=== PATIENT | male | born 1975 | race Caucasian/White ===

== ENCOUNTER 2017-07-24 21:06 | Emergency (ER) | payer SELFPAY ==
[2017-07-24] MEDS ORDERED: TORADOL IM ONE (21:28)
[2017-07-24 21:35] LABS: Basophils % (Auto) 0.1 % (0.0-1.8); Hemoglobin 15.2 gm/dl (11.8-15.2); Mean Corpuscular HGB Conc 35 % (32-34); Mean Corpuscular Hemoglobin 31 pg (28-32); Mean Corpuscular Volume 89 fl (84-94); Platelet Count 165 K/mm3 (140-440); Red Blood Count 4.83 M/mm3 (3.65-5.03); Red Cell Distribution Width 13.5 % (13.2-15.2); White Blood Count 9.8 K/mm3 (4.5-11.0)
[2017-07-24 21:56] LABS: Albumin 4.3 g/dL (3.9-5); Albumin/Globulin Ratio 1.4 %; Bilirubin,Total 0.6 mg/dL (0.1-1.2); Chloride 95.6 mmol/L (98-107); Potassium 3.7 mmol/L (3.6-5.0); Total Protein 7.3 g/dL (6.3-8.2)
[2017-07-24] MEDS ORDERED: NACL 0.9% 1000 ML 1,000 ML IV ONE (22:28)
--- NOTE | 2017-07-24 22:42 | Emergency Department Report ---
ED Abdominal Pain HPI - General Chief Complaint: Abdominal Pain Stated Complaint: ABD PX/VOMITING Time Seen by Provider: 07/24/17 22:07 Source: patient Mode of arrival: Ambulatory Limitations: Language Barrier - History of Present Illness Initial Comments: 42-year-old male with a Past surgical history patient's last complaint left flank pain. Pain 1 day, constant, no aggravating or alleviating factors.pain is rated 10/10 in intensity and described as squeezing in nature. Low-grade temperature noted upon arrival. Has associated nausea vomiting. No complains of diarrhea, dysuria, or hematuria, patient has not urinated much today. Patient has had elevated blood pressure over the last 3-4 months but no meds or official diagnosis of hypertension. Severity scale (0 -10): 10 - Related Data Previous Rx's Medication Instructions Recorded Last Taken Type Ibuprofen [Motrin] 800 mg PO Q8HR PRN #30 tablet 07/25/17 Unknown Rx Ondansetron [Zofran Odt] 4 mg PO Q8HR PRN #20 tab.rapdis 07/25/17 Unknown Rx Tamsulosin [Flomax] 0.4 mg PO QDAY #7 cap 07/25/17 Unknown Rx oxyCODONE /ACETAMINOPHEN [Percocet 1 tab PO Q4HR PRN #20 tab 07/25/17 Unknown Rx 5/325] Allergies Allergy/AdvReac Type Severity Reaction Status Date / Time No Known Allergies Allergy Unverified 07/24/17 21:13 ED Review of Systems ROS: Stated complaint: ABD PX/VOMITING Other details as noted in HPI Comment: All other systems reviewed and negative Other: Constitutional: As per HPI Eyes: No eye pain visual changes or discharge ENT: No ear pain or throat pain Neck: Denies pain Respiratory: Denies cough wheezing shortness of breath Cardiovascular: Denies chest pain, palpitations, syncope GI: As per HPI : As in HPI Musculoskeletal: Left flank pain Skin: Denies rash, lesions, erythema Neurologic: Denies headache, numbness, weakness Psychiatric: Denies suicidal ideation, hallucinations ED Past Medical Hx - Past Medical History Previous Medical History?: No - Surgical History Past Surgical History?: No - Social History Smoking Status: Never Smoker Substance Use Type: Alcohol - Medications Home Medications: Home Medications Medication Instructions Recorded Confirmed Last Taken Type Ibuprofen [Motrin] 800 mg PO Q8HR PRN #30 tablet 07/25/17 Unknown Rx Ondansetron [Zofran Odt] 4 mg PO Q8HR PRN #20 tab.rapdis 07/25/17 Unknown Rx Tamsulosin [Flomax] 0.4 mg PO QDAY #7 cap 07/25/17 Unknown Rx oxyCODONE /ACETAMINOPHEN [Percocet 1 tab PO Q4HR PRN #20 tab 07/25/17 Unknown Rx 5/325] ED Physical Exam - General Limitations: Language Barrier - Other Other exam information: General: No limitations, patient is alert in no acute distress Head exam: Atraumatic, normocephalic Eyes exam: Normal appearance ENT: Moist mucous membrane, normal oropharynx Neck exam: Normal inspection, full range of motion, no meningismus nontender Respiratory exam: Clear to auscultation bilateral, no wheezes, rales, crackles Cardiovascular: Normal rate and rhythm, normal heart sounds Abdomen: Soft, nondistended, mild left upper flank tendon, with normal bowel sounds, no rebound, or guarding Extremity: Full range of motion normal inspection no deformity Back: Normal Inspection, full range of motion, no tenderness Neurologic: Alert, oriented x3, cranial nerves intact, no motor or sensory deficit Psychiatric: normal affect, normal mood Skin: Warm, dry, intact ED Course Vital Signs 07/24/17 07/24/17 07/24/17 21:10 21:36 22:05 Temperature 100.5 F H 98.4 F Pulse Rate 89 90 Respiratory 20 18 16 Rate Blood Pressure 175/106 Blood Pressure 147/92 [Left] O2 Sat by Pulse 99 97 Oximetry 07/24/17 07/24/17 07/24/17 22:15 22:30 23:21 Temperature Pulse Rate Respiratory Rate Blood Pressure 157/92 154/93 Blood Pressure [Left] O2 Sat by Pulse 97 97 99 Oximetry - Reevaluation(s) Reevaluation #1: 07/24/17 22:42 Patient received IM Toradol prior to my evaluation with improvement in pain ED Medical Decision Making - Lab Data Result diagrams: 07/24/17 21:23 07/24/17 21:23 Lab Results 07/24/17 07/24/17 07/24/17 Range/Units 21:23 21:23 22:30 WBC 9.8 (4.5-11.0) K/mm3 RBC 4.83 (3.65-5.03) M/mm3 Hgb 15.2 (11.8-15.2) gm/dl Hct 43.0 (35.5-45.6) % MCV 89 (84-94) fl MCH 31 (28-32) pg MCHC 35 H (32-34) % RDW 13.5 (13.2-15.2) % Plt Count 165 (140-440) K/mm3 Lymph % (Auto) 5.4 L (13.4-35.0) % [place] % (Auto) 5.5 (0.0-7.3) % Eos % (Auto) 0.0 (0.0-4.3) % Baso % (Auto) 0.1 (0.0-1.8) % Lymph # 0.5 L (1.2-5.4) K/mm3 [place] # 0.5 (0.0-0.8) K/mm3 Eos # 0.0 (0.0-0.4) K/mm3 Baso # 0.0 (0.0-0.1) K/mm3 Seg Neutrophils % 89.0 H (40.0-70.0) % Seg Neutrophils # 8.7 H (1.8-7.7) K/mm3 Potassium 3.7 (3.6-5.0) mmol/L Chloride 95.6 L (98-107) mmol/L Carbon Dioxide 24 (22-30) mmol/L Anion Gap 19 mmol/L BUN 17 (9-20) mg/dL Creatinine 1.5 (0.8-1.5) mg/dL Estimated GFR 51 ml/min BUN/Creatinine Ratio 11 % Glucose 151 H (75-100) mg/dL Calcium 9.0 (8.4-10.2) mg/dL Total Bilirubin 0.60 (0.1-1.2) mg/dL AST 20 (5-40) units/L ALT 18 (7-56) units/L Alkaline Phosphatase 93 (35-129) units/L Total Protein 7.3 (6.3-8.2) g/dL Albumin 4.3 (3.9-5) g/dL Albumin/Globulin Ratio 1.4 % Lipase 14 (13-60) units/L Urine Color Yellow (Yellow) Urine Turbidity Clear (Clear) Urine pH 5.0 (5.0-7.0) Ur Specific [place] 1.026 (1.003-1.030) Urine Protein 30 mg/dl (Negative) mg/dL Urine Glucose (UA) Neg (Negative) mg/dL Urine Ketones Tr (Negative) mg/dL Urine Blood Mod (Negative) Urine Nitrite Neg (Negative) Urine Bilirubin Neg (Negative) Urine Urobilinogen < 2.0 (<2.0) mg/dL Ur Leukocyte Esterase Neg (Negative) Urine WBC (Auto) 1.0 (0.0-6.0) /HPF Urine RBC (Auto) 10.0 (0.0-6.0) /HPF U Epithel Cells (Auto) < 1.0 (0-13.0) /HPF Urine Mucus Few /HPF Sodium 135 - Radiology Data Radiology results: report reviewed CT abdomen and pelvis without contrast: left proximal ureteral stone with hydronephrosis. There are 2 stones in the right kidney. 5 stones in left kidney. 0.9 cm left proximal ureter stone. - Medical Decision Making Water/Waste[employer] Project Manager used to explain patient's diagnosis importance of follow-up with an urologist because of the size of the stone. Patient stone is 9 millimeter and therefore may not pass spontaneously and may require further surgical intervention. Patient voices understanding. Pain control prior to discharge. Dilaudid 0.5 mg provided prior to discharge to help with pain throughout the night. kub performed prior to d/c - Differential Diagnosis renal colic, gastritis, UTI, pancreatitis Critical Care Time: No Critical care attestation.: If time is entered above; I have spent that time in minutes in the direct care of this critically ill patient, excluding procedure time. ED Disposition Clinical Impression: Renal colic on left side, Nephrolithiasis Disposition: DC-01 TO HOME OR SELFCARE Is pt being admited?: No Does the pt Need Aspirin: No Condition: Stable Instructions: Renal Colic (ED), How to Strain Your Urine (ED) Additional Instructions: Take your medication as prescribed. It is a very important and that you follow- up with the urologist for further management of your kidney stone. Kidney stone is 9 millimeter and therefore, may not pass on its own. The urologist will determine if surgery and further treatment is necessary. Please return if symptoms worsen as indicated by your discharge instructions. You have been provided a copy of your CAT scan report to take to your follow-up visit. [place] carney medicamento segn lo recetado. Es muy importante y usted hace un seguimiento con el urlogo para el manejo posterior de carney clculo renal. La lam del rin mide 9 milmetros y, por lo tanto, no puede pasar por s misma. El urlogo determinar si es necesaria ciruga y ms tratamiento. Por favor regrese si los sntomas empeoran segn lo indicado por ok instrucciones de bertin. Se le bañuelos proporcionado valorie copia de carney informe de escaneo CAT para llevar a carney visita de seguimiento. Prescriptions: Ibuprofen [Motrin] 800 mg PO Q8HR PRN #30 tablet PRN Reason: Pain Ondansetron [Zofran Odt] 4 mg PO Q8HR PRN #20 tab.rapdis PRN Reason: Nausea And Vomiting oxyCODONE /ACETAMINOPHEN [Percocet 5/325] 1 tab PO Q4HR PRN #20 tab PRN Reason: Pain Tamsulosin [Flomax] 0.4 mg PO QDAY #7 cap Referrals: ELY SORIA MD [Staff Physician] - 07/25/17 (call urologist later today to schedule follow up ) Time of Disposition: 01:00 Print Language: BULGARIAN
[2017-07-24 22:57] LABS: Bilirubin,Urine NEG (Negative); Blood,Urine MOD (Negative); Ketones,Urine TR mg/dL (Negative); Leukocyte Esterase,Urine NEG (Negative); Mucus,Urine FEW /HPF; Nitrite,Urine NEG (Negative); Urobilinogen,Urine < 2.0 mg/dL (<2.0)
--- NOTE | 2017-07-24 23:20 | Cat Scan Report ---
FINAL REPORT PROCEDURE: CT ABDOMEN PELVIS WO CON TECHNIQUE: Computerized axial tomography of the abdomen and pelvis was performed without intravenous contrast. HISTORY: left flank pain, n/v COMPARISON: No prior studies are available for comparison. FINDINGS: Visualized lower thorax: No significant abnormality. Liver: Normal size and attenuation. Spleen: Normal size and attenuation. Gallbladder and biliary system: Normal. Pancreas: Normal. Adrenals: Normal. Kidneys: There are 2 stones of the right kidney measuring 0.3 and 0.4 cm. There are 5 stones of the left kidney measuring 0.2-0.4 cm. There is mild left hydronephrosis. There is 0.9 cm left proximal ureteral stone.. GI tract: Normal. No dilated loops of large or small bowel. Lymph nodes and mesentery: Normal. Vasculature: Normal. Bladder: Normal. Reproductive organs: Calcifications of the prostate. Peritoneum: No free fluid. Musculoskeletal structures: No significant abnormality. Other: None. IMPRESSION: Bilateral renal stones. Left proximal ureteral stone with hydronephrosis.
[2017-07-24 23:32] VITALS: BP 154/93
[2017-07-25] MEDS ORDERED: DILAUDID IV ONE (00:11)
[2017-07-25] MEDS ORDERED: ZOFRAN IV ONE (00:20)
--- NOTE | 2017-07-25 08:02 | XRay Report ---
ABDOMEN RADIOGRAPHS INDICATION: Renal stone. COMPARISON: CT from last night. FINDINGS: Frontal supine abdominal radiographs demonstrate few air containing small bowel loops in the left hemiabdomen measuring up to 3 cm caliber. Nonobstructive colonic pattern, where visible. Known bilateral renal calculi measuring less than 5 mm as also 9 mm left proximal ureteral calculus not visualized radiographically. No pneumatosis. Right hemidiaphragm slightly elevated. Clear visualized lung bases. Mild L2 degenerative spurring. CONCLUSION: Mild small bowel ileus, as described. Thank you for the opportunity to participate in this patient's care.
== END 2017-07-25 01:32 | disposition home or self-care (01) ==
LOC: ED 21:06
DX: N20.0 Calculus of kidney (principal); N23 Unspecified renal colic
CPT/HCPCS: 36415; 74000; 74176; 80053; 81001; 83690; 85025; 87086; 96361; 96372; 96374; 96375; 99284; J1170; J1885; J2405; J7030